=== PATIENT | female | born 1985 | race Asian ===

== ENCOUNTER 2020-10-20 17:19 | Inpatient (IN) | payer BC ==
[~2020-10-20] VITALS: Ht 165.1 cm; Wt 69.5 kg
[2020-10-20 17:59] VITALS: BP 109/72
[2020-10-20] MEDS ORDERED: OXYTOCIN 30U/ 0.9% NaCL 500ML 500 ML IV PRN (18:00)
[2020-10-20] MEDS ORDERED: ONDANSETRON 2MG/ML, 2ML IVPush PRN ×2 (18:00→20:00)
[2020-10-20] MEDS ORDERED: TERBUTALINE 1 MG/ML, 1ML SQ PRN (18:00)
[2020-10-20] MEDS ORDERED: CALCIUM CARBONATE 500 MG TAB.CHEW PO PRN (18:00)
[2020-10-20] MEDS ORDERED: FENTANYL PF 100 MCG/2ML IV PRN (18:00)
[2020-10-20] MEDS ORDERED: FENTANYL PF 100 MCG/2ML IVPush PRN (18:00)
[2020-10-20] MEDS ORDERED: OXYTOCIN 30U/ 0.9% NaCL 500ML 500 ML IV ONE (18:00)
[2020-10-20] MEDS ORDERED: LACTATED RINGERS 1,000 ML IV SCH ×2 (18:00→20:00)
[2020-10-20] MEDS ORDERED: TERBUTALINE 1 MG/ML, 1ML IVPush PRN (18:00)
[2020-10-20] MEDS ORDERED: SODIUM CHLORIDE FLUSH 10ML SYR IVF PRN (18:00)
[2020-10-20] MEDS ORDERED: PLEASE ENTER ALLERGIES MC SCH (18:02)
[2020-10-20 18:16] LABS: BASOPHILS % (AUTO) 1 % (0-1); EOSINOPHILS % (AUTO) 1 % (1-7); LYMPHOCYTES % (AUTO) 15 % (22-44); MEAN CORPUSCULAR HEMOGLOBIN 35.2 pg (27.0-34.8); MEAN CORPUSCULAR HGB CONC 34.4 g/dL (32.4-35.8); MEAN PLATELET VOLUME 8.2 fL (7.4-10.4); MONOCYTES % (AUTO) 7 % (2-9); NEUTROPHILS % (AUTO) 77 % (42-75); PLATELET COUNT 199 x10^3/uL (130-400); RED BLOOD COUNT 3.93 x10^6/uL (3.82-5.3); RED CELL DISTRIBUTION WIDTH 13.3 % (9.6-15.2)
[2020-10-20] MEDS ORDERED: NEWBORN KIT ONE (19:39)
[2020-10-20] MEDS ORDERED: FENTANYL/BUPIV./NS/PF 250 ML EPIDCONT ONE (19:53)
[2020-10-20] MEDS ORDERED: BUPIVACAINE 0.25% ONE (19:53)
[2020-10-20] MEDS ORDERED: LIDOCAINE/PF 1.5% EPI 1:200K, 10 ML ONE (19:56)
[2020-10-20] MEDS ORDERED: EPHEDRINE 50 MG/ML, 1ML IVPush PRN (20:00)
[2020-10-20] MEDS ORDERED: NALOXONE 0.4 MG/ML, 1ML IVPush PRN (20:00)
[2020-10-20] MEDS ORDERED: FENTANYL/BUPIV./NS/PF 250 ML EPIDCONT SCH (20:00)
[2020-10-20] MEDS ORDERED: DIPHENHYDRAMINE 50 MG/ML, 1ML IVPush PRN (20:00)
[2020-10-20] MEDS ORDERED: LACTATED RINGERS 1,000 ML IVBOLUS PRN (20:00)
[2020-10-21] MEDS: OXYTOCIN 30U/ 0.9% NaCL 500ML 500 ML IV SCH ×3 (01:00→21:00)
[2020-10-21] MEDS ORDERED: ACETAMINOPHEN 325 MG TABLET PO PRN (01:00)
[2020-10-21] MEDS ORDERED: OXYcodone IR 5MG TABLET PO PRN (01:00)
[2020-10-21] MEDS ORDERED: ONDANSETRON 2MG/ML, 2ML IV PRN (01:00)
[2020-10-21] MEDS ORDERED: MISOPROSTOL 200 MCG TABLET PR PRN (01:00)
[2020-10-21] MEDS ORDERED: SIMETHICONE 80 MG CHEW TAB PO PRN (01:00)
[2020-10-21] MEDS ORDERED: OXYcodone/APAP 5/325MG TABLET PO PRN (01:00)
[2020-10-21 03:15] VITALS: BP 104/67
[2020-10-21] MEDS: IBUPROFEN 600 MG TABLET PO PRN ×3 (04:12→18:40)
[2020-10-21] MEDS: PRENATAL VIT/IRON/FA 1 EACH TABLET PO SCH (07:35)
[2020-10-21] MEDS: DOCUSATE 100 MG CAPSULE PO PRN ×2 (07:36→20:25)
[2020-10-21 08:00] VITALS: BP 108/73
[2020-10-21 09:50] LABS: BASOPHILS % (AUTO) 0 % (0-1); EOSINOPHILS % (AUTO) 0 % (1-7); LYMPHOCYTES % (AUTO) 10 % (22-44); MEAN CORPUSCULAR HEMOGLOBIN 33.9 pg (27.0-34.8); MEAN CORPUSCULAR HGB CONC 33.5 g/dL (32.4-35.8); MONOCYTES % (AUTO) 6 % (2-9); NEUTROPHILS % (AUTO) 84 % (42-75); PLATELET COUNT 180 x10^3/uL (130-400); RED BLOOD COUNT 3.72 x10^6/uL (3.82-5.3); RED CELL DISTRIBUTION WIDTH 13.4 % (9.6-15.2)
[2020-10-21 12:35] VITALS: BP 111/79
[2020-10-21 16:30] VITALS: BP 99/67
[2020-10-21 19:40] VITALS: BP 117/60
[2020-10-22] MEDS: IBUPROFEN 600 MG TABLET PO PRN ×2 (00:35→07:14)
[2020-10-22] MEDS: OXYTOCIN 30U/ 0.9% NaCL 500ML 500 ML IV SCH (07:00)
[2020-10-22 07:10] VITALS: BP 103/68
[2020-10-22] MEDS: DOCUSATE 100 MG CAPSULE PO PRN (07:14)
[2020-10-22] MEDS: PRENATAL VIT/IRON/FA 1 EACH TABLET PO SCH (07:14)
[2020-10-22 08:10] VITALS: BP 93/61
== END 2020-10-22 12:35 | disposition home or self-care (01) | DRG 807 ==
LOC: LDOP 17:19 → LDIP 18:06 → 2NW 10-21 03:05
PROVIDERS: ADMIT Obstetrics & Gynecology; ATTEND Obstetrics & Gynecology
PROC: 10E0XZZ Delivery of Products of Conception, External Approach (ICD-10-PCS; principal; 2020-10-21)
PROC: 0KQM0ZZ Repair Perineum Muscle, Open Approach (ICD-10-PCS; 2020-10-21)
PROC: 0UQMXZZ Repair Vulva, External Approach (ICD-10-PCS; 2020-10-21)
PROC: 3E0R3BZ Introduction of Anesthetic Agent into Spinal Canal, Percutaneous Approach (ICD-10-PCS; 2020-10-21)
PROC: 00HU33Z Insertion of Infusion Device into Spinal Canal, Percutaneous Approach (ICD-10-PCS; 2020-10-21)
DX: O70.1 Second degree perineal laceration during delivery (principal); Z37.0 Single live birth; Z3A.40 40 weeks gestation of pregnancy; O71.82 Other specified trauma to perineum and vulva
CPT/HCPCS: 36415; 85025; 86592; 86850; 86900; 87635; G0378; J2590; J3010